=== PATIENT | female | born 1960 | race Caucasian/White ===

== ENCOUNTER → 2020-12-15 | Outpatient (CLI) | payer SELFPAY ==
[~2020-12-15] MED LIST: HOLD METFORMIN - RECEIVED CONTRAST 20 ML VIAL IV SCH; IOHEXOL 350 MG/ML 100 ML (OMNIPAQUE 350) VIAL IV ONE; NS 100 ML (IVPB) BAG IV ONE
[2020-12-15 10:50] LABS: ALBUMIN 4.2 GM/DL (3.2-4.5); BILIRUBIN,TOTAL 0.4 MG/DL (0.1-1.0); CALCIUM 9.7 MG/DL (8.5-10.1); CREATININE SERUM 0.78 MG/DL (0.60-1.30); POTASSIUM 4.3 MMOL/L (3.6-5.0); TOTAL PROTEIN 7.4 GM/DL (6.4-8.2)
--- NOTE | 2020-12-15 13:16 | Diagnostic Imaging Report ---
PROCEDURE: CT chest with contrast only. TECHNIQUE: Multiple contiguous axial images were obtained through the chest after administration of intravenous contrast. Auto Exposure Controls were utilized during the CT exam to meet ALARA standards for radiation dose reduction. INDICATION: 60-year-old female, pulmonary nodule, followup. CORRELATION: Currently no prior studies and/or reports available for comparison. FINDINGS: A few shotty subcentimeter mediastinal, axillary, lower paraesophageal, and upper abdominal lymph nodes are present. The heart size is unremarkable. Thoracic aorta is normal in contour. There are scattered areas of small predominately subpleural nodularity. There is a more grouped area in the posterolateral left lower lobe with the largest nodule measuring 3 mm. The overall regional aggregate area measures approximately 9 mm. Additional areas of likely fibrosis, particularly at the left lung base. No consolidating infiltrate. No significant pleural effusion. Large gallstone filling the gallbladder is present. The visualized osseous structures demonstrate no acute findings. IMPRESSION: Scattered areas of nodularity within particularly the subpleural region of both lobes. The largest grouping is in the left lower lobe. The overall findings are nonspecific but generally favor a currently benign appearance, perhaps inflammatory or infectious in etiology. Followup imaging in approximately 3-6 months is recommended for reassessment. Additionally, if there are prior outside studies available, their comparison and correlation would be recommended. Dictated by: Dictated on workstation # [id number]
== END ==
LOC: RAD FS 10:16
PROVIDERS: ATTEND Nurse Practitioner Family
DX: R91.8 Other nonspecific abnormal finding of lung field (principal)
CPT/HCPCS: 36415; 71260; 80053